=== PATIENT | female | born 1935 | race Caucasian/White ===

== ENCOUNTER 2018-11-05 09:04 | Outpatient (CLI) | payer OTHER ==
[~2018-11-05 09:04] MED LIST: AUGMENTIN125 MG/5 M; CARDIZEM CD180 M1 PO; CARTIA; IMODIUM A-D2 M2 PO; INTEGRA PLUS C1 EACH PO; NEURONTIN300 MG; PANTOPRAZOLE PO; PANTOPRAZOLE SO20 MG; PLAVIX75 MG; PLAVIX75 MG PO; RESTORA CAPSUL1 EACH PO; SYNTHROID75 MCG; ZIAC 5-6.25 MG1 TAB PO; [UNRECOGNIZED DRUG - OTHER]
== END 2018-11-05 09:17 | disposition home or self-care (01) ==
LOC: LAB 09:04
DX: E03.8 Other specified hypothyroidism (principal); C20 Malignant neoplasm of rectum; Z85.048 Personal history of other malignant neoplasm of rectum, rectosigmoid junction, and anus; D63.1 Anemia in chronic kidney disease; N18.3 Chronic kidney disease, stage 3 (moderate); I10 Essential (primary) hypertension; Z95.1 Presence of aortocoronary bypass graft; Z98.51 Tubal ligation status; E78.5 Hyperlipidemia, unspecified; I21.3 ST elevation (STEMI) myocardial infarction of unspecified site; R94.5 Abnormal results of liver function studies; D50.8 Other iron deficiency anemias; D51.8 Other vitamin B12 deficiency anemias; K90.89 Other intestinal malabsorption

== ENCOUNTER 2018-11-28 10:36 | Outpatient (CLI) | payer OTHER | END 2018-11-28 10:55 | disposition home or self-care (01) | LOC: TOM 10:36 | DX: R10.9 Unspecified abdominal pain (principal); Z85.038 Personal history of other malignant neoplasm of large intestine ==

== ENCOUNTER 2018-12-09 08:22 | Outpatient (CLI) | payer OTHER | END 2018-12-09 13:33 | disposition HB | LOC: LAB 08:22 | DX: C20 Malignant neoplasm of rectum (principal); C78.02 Secondary malignant neoplasm of left lung; C78.01 Secondary malignant neoplasm of right lung; D63.1 Anemia in chronic kidney disease; N18.3 Chronic kidney disease, stage 3 (moderate); I10 Essential (primary) hypertension; Z95.1 Presence of aortocoronary bypass graft; Z98.61 Coronary angioplasty status; E03.8 Other specified hypothyroidism; I21.3 ST elevation (STEMI) myocardial infarction of unspecified site; R94.5 Abnormal results of liver function studies; Z85.048 Personal history of other malignant neoplasm of rectum, rectosigmoid junction, and anus; D50.8 Other iron deficiency anemias; D51.8 Other vitamin B12 deficiency anemias; R97.0 Elevated carcinoembryonic antigen [CEA]; E78.49 Other hyperlipidemia ==

== ENCOUNTER 2019-02-17 10:34 | Outpatient (CLI) | payer OTHER | END 2019-02-17 11:34 | disposition home or self-care (01) | LOC: LAB 10:34 | DX: C20 Malignant neoplasm of rectum (principal); C78.02 Secondary malignant neoplasm of left lung; C78.01 Secondary malignant neoplasm of right lung; D63.1 Anemia in chronic kidney disease; N18.3 Chronic kidney disease, stage 3 (moderate); I10 Essential (primary) hypertension; Z95.1 Presence of aortocoronary bypass graft; Z98.61 Coronary angioplasty status; E03.8 Other specified hypothyroidism; E78.49 Other hyperlipidemia; I21.3 ST elevation (STEMI) myocardial infarction of unspecified site; R94.5 Abnormal results of liver function studies; Z85.048 Personal history of other malignant neoplasm of rectum, rectosigmoid junction, and anus; D50.0 Iron deficiency anemia secondary to blood loss (chronic) ==

== ENCOUNTER 2019-04-22 08:14 | Outpatient (CLI) | payer OTHER | END 2019-04-22 08:20 | disposition home or self-care (01) | LOC: LAB 08:14 | DX: E03.8 Other specified hypothyroidism (principal); C20 Malignant neoplasm of rectum; C78.02 Secondary malignant neoplasm of left lung; C78.01 Secondary malignant neoplasm of right lung; D63.1 Anemia in chronic kidney disease; N18.3 Chronic kidney disease, stage 3 (moderate); Z95.1 Presence of aortocoronary bypass graft; Z98.61 Coronary angioplasty status; E78.49 Other hyperlipidemia; I21.3 ST elevation (STEMI) myocardial infarction of unspecified site; R94.5 Abnormal results of liver function studies; Z85.048 Personal history of other malignant neoplasm of rectum, rectosigmoid junction, and anus ==

== ENCOUNTER 2019-05-06 09:07 | Outpatient (CLI) | payer OTHER | END 2019-05-06 15:26 | disposition home or self-care (01) | LOC: LAB 09:07 | DX: C20 Malignant neoplasm of rectum (principal); E04.0 Nontoxic diffuse goiter; I11.0 Hypertensive heart disease with heart failure; N39.0 Urinary tract infection, site not specified; E55.9 Vitamin D deficiency, unspecified; E11.9 Type 2 diabetes mellitus without complications ==

== ENCOUNTER → 2019-07-08 08:05 | Outpatient (CLI) | payer OTHER | END | disposition home or self-care (01) | LOC: LAB 08:05 | DX: D50.8 Other iron deficiency anemias (principal); I10 Essential (primary) hypertension ==

== ENCOUNTER → 2019-08-12 08:22 | Outpatient (CLI) | payer OTHER | END | disposition home or self-care (01) | LOC: RAD 08:22 → LAB 08:22 | DX: C20 Malignant neoplasm of rectum (principal); C78.02 Secondary malignant neoplasm of left lung; C78.01 Secondary malignant neoplasm of right lung; D63.1 Anemia in chronic kidney disease; N18.3 Chronic kidney disease, stage 3 (moderate); Z95.1 Presence of aortocoronary bypass graft; Z98.61 Coronary angioplasty status; E03.8 Other specified hypothyroidism; E78.49 Other hyperlipidemia; I21.3 ST elevation (STEMI) myocardial infarction of unspecified site; R94.5 Abnormal results of liver function studies; Z85.048 Personal history of other malignant neoplasm of rectum, rectosigmoid junction, and anus; D50.8 Other iron deficiency anemias; N39.0 Urinary tract infection, site not specified ==

== ENCOUNTER → 2019-09-13 10:33 | Outpatient (CLI) | payer OTHER | END | disposition home or self-care (01) | LOC: LAB 10:33 | DX: C20 Malignant neoplasm of rectum (principal); C78.02 Secondary malignant neoplasm of left lung; C78.01 Secondary malignant neoplasm of right lung; D63.1 Anemia in chronic kidney disease; N18.3 Chronic kidney disease, stage 3 (moderate); Z95.1 Presence of aortocoronary bypass graft; Z98.61 Coronary angioplasty status; E03.8 Other specified hypothyroidism; E78.49 Other hyperlipidemia; I21.3 ST elevation (STEMI) myocardial infarction of unspecified site; R94.5 Abnormal results of liver function studies; Z85.048 Personal history of other malignant neoplasm of rectum, rectosigmoid junction, and anus; R97.0 Elevated carcinoembryonic antigen [CEA] ==

== ENCOUNTER → 2019-10-14 09:02 | Outpatient (CLI) | payer OTHER | END | disposition home or self-care (01) | LOC: LAB 09:02 | DX: D50.8 Other iron deficiency anemias (principal); C20 Malignant neoplasm of rectum; C78.02 Secondary malignant neoplasm of left lung; C78.01 Secondary malignant neoplasm of right lung; D63.1 Anemia in chronic kidney disease; N18.3 Chronic kidney disease, stage 3 (moderate); Z95.1 Presence of aortocoronary bypass graft; Z98.61 Coronary angioplasty status; E03.8 Other specified hypothyroidism; E78.49 Other hyperlipidemia; I21.3 ST elevation (STEMI) myocardial infarction of unspecified site; R94.5 Abnormal results of liver function studies; Z85.048 Personal history of other malignant neoplasm of rectum, rectosigmoid junction, and anus; D51.8 Other vitamin B12 deficiency anemias; R97.0 Elevated carcinoembryonic antigen [CEA] ==

== ENCOUNTER 2019-11-15 07:53 | Outpatient (CLI) | payer OTHER | END 2019-11-15 07:57 | disposition home or self-care (01) | LOC: LAB 07:53 | DX: D50.8 Other iron deficiency anemias (principal); D51.8 Other vitamin B12 deficiency anemias; R97.0 Elevated carcinoembryonic antigen [CEA]; R97.8 Other abnormal tumor markers; C20 Malignant neoplasm of rectum; C78.7 Secondary malignant neoplasm of liver and intrahepatic bile duct; C78.02 Secondary malignant neoplasm of left lung; C78.01 Secondary malignant neoplasm of right lung; D63.1 Anemia in chronic kidney disease; N18.3 Chronic kidney disease, stage 3 (moderate); Z95.1 Presence of aortocoronary bypass graft; Z98.61 Coronary angioplasty status; E03.8 Other specified hypothyroidism; E78.49 Other hyperlipidemia; I21.3 ST elevation (STEMI) myocardial infarction of unspecified site; R94.5 Abnormal results of liver function studies; Z85.048 Personal history of other malignant neoplasm of rectum, rectosigmoid junction, and anus ==

== ENCOUNTER 2020-05-25 10:48 | Emergency (ER) | payer OTHER ==
[~2020-05-25] VITALS: Ht 152.4 cm; Wt 52.6 kg
== END 2020-05-25 16:58 | disposition home or self-care (01) ==
LOC: ER 10:48
DX: R33.8 Other retention of urine (principal); N39.0 Urinary tract infection, site not specified; C20 Malignant neoplasm of rectum

== ENCOUNTER 2020-07-04 07:49 | Inpatient (IN) | payer OTHER ==
[~2020-07-04] VITALS: Ht 152.4 cm; Wt 113.9 kg
[2020-07-04] MEDS ORDERED: SYNTHROID88 MCG (08:00)
[2020-07-04] MEDS ORDERED: ZIAC 2.5-6.251 EACH (08:01)
[2020-07-04] MEDS ORDERED: VITAMIN C WITH500 MG (08:02)
[2020-07-04] MEDS ORDERED: VITAMIN B122500 MCG (08:02)
[2020-07-04] MEDS ORDERED: LIDOCAINE1 EAC1 (08:02)
--- NOTE | 2020-07-04 08:03 | NUR ---
SE RECIBE PTE ALERTA Y ORIENTADA [id number] OPOR FAMIL;IAR ES REFERIDA POR LA .[place] [POR HEMOGLOBINA BAJA PRA TRANSFUCION DE BEATRIZ ES PTE DE CANCER ,TIENE RESULTADOS DE [facility] 17 DE SEPTIEMBRE HEMOGLOBINA EN 8 EN SES MOMENTO,LA HIJA REFIERE QUE LA . LA REFIERE AL INTERNISTA EL .
--- NOTE | 2020-07-04 10:08 | NUR ---
PTE EVALUADA POR EL DR NAM QUIEN [place]. SE ORIENTA SOBRE EL MISMO, LO CUAL FAMILIAR Y PTE REFIEREN ENTENDER. SE REALIZAN PRUEBAS DE LABORATORIO Y SE ADMINISTRA MEDICAMENTO CAITLIN ORDEN MEDICA Y SIGUIENDO MEDIDAS ASEPTICAS. SE ENVIAN MUESTRAS DE TUBOS PILOTOS A MS CHAVEZ DE [place] DE [place] PARA 2 U DE PRBC FRACCIONADAS. SE MANTIENE BAJO OBSERVACION.
== END 2020-07-06 15:22 | disposition home or self-care (01) | DRG 812 ==
LOC: ER 07:49 → SEC-K 11:55 → SURH 07-05 21:31
PROVIDERS: ADMIT Internal Medicine Geriatric Medicine; ATTEND Internal Medicine Geriatric Medicine
PROC: 8E0ZXY6 Isolation (ICD-10-PCS; principal; 2020-07-04)
PROC: 30233N1 Transfusion of Nonautologous Red Blood Cells into Peripheral Vein, Percutaneous Approach (ICD-10-PCS; 2020-07-04)
DX: D64.81 Anemia due to antineoplastic chemotherapy (principal); C20 Malignant neoplasm of rectum; T45.1X5A Adverse effect of antineoplastic and immunosuppressive drugs, initial encounter; E78.49 Other hyperlipidemia; I25.10 Atherosclerotic heart disease of native coronary artery without angina pectoris; E03.8 Other specified hypothyroidism; I11.9 Hypertensive heart disease without heart failure; I25.2 Old myocardial infarction; G47.33 Obstructive sleep apnea (adult) (pediatric); E66.8 Other obesity; Z20.828 Contact with and (suspected) exposure to other viral communicable diseases; D63.0 Anemia in neoplastic disease